=== PATIENT | female | born 1960 | race Caucasian/White ===

== ENCOUNTER 2016-11-19 17:53 | Emergency (ER) | payer OTHER | END 2016-11-19 17:55 | disposition left against medical advice (07) | LOC: CED 17:53 | DX: Z53.21 Procedure and treatment not carried out due to patient leaving prior to being seen by health care provider (principal) ==

== ENCOUNTER → 2018-01-05 | Outpatient (CLI) | payer OTHER | LOC: FIMAGING 09:12 → MERGE 09:12 | PROVIDERS: ATTEND Family Medicine | DX: N64.4 Mastodynia (principal); R23.4 Changes in skin texture ==